=== PATIENT | male | born 1940 | race Caucasian/White ===

== ENCOUNTER 2019-04-09 06:29 | Observation (INO) | payer OTHER ==
[2019-04-09] VITALS (13 sets, daily range): BP systolic 98–161; BP diastolic 45–86
[~2019-04-09] VITALS: Ht 177.8 cm; Wt 105.1 kg
[2019-04-09 07:10] LABS: ABSOLUTE NEUTROPHILS 4.3 thou/uL (1.4-8.2); BASOPHILS 1.3 % (0.0-2.0); EOSINOPHILS 4.2 % (0.0-3.0); HEMATOCRIT 44.2 % (42.0-52.0); HEMOGLOBIN 14.9 gm/dL (14.0-18.0); LYMPHOCYTES 23.6 % (24.0-44.0); MCH 35.4 pg (26.0-34.0); MCHC 33.7 g/dL (28.0-37.0); MCV 105.1 fL (80.0-100.0); MONOCYTES 8.2 % (1.0-8.0); PLATELET COUNT 280 thou/uL (150-400); POLYS 62.7 % (36.0-66.0); RBC 4.21 mil/uL (4.50-6.00); RDW 15.1 % (10.5-14.5); WBC 6.8 thou/uL (4.0-11.0)
[2019-04-09 07:22] LABS: CALCIUM 9.8 mg/dL (8.5-10.1); CREATININE 2.8 mg/dL (0.7-1.3); POTASSIUM 4.3 mmol/L (3.5-5.1)
[2019-04-09] MEDS ORDERED: CARVEDILOL3.125 MG PO (07:23)
[2019-04-09] MEDS ORDERED: PACERONE 200 M200 M1 PO (07:23)
[2019-04-09] MEDS ORDERED: DIGOXIN250 MCG PO (07:24)
[2019-04-09] MEDS ORDERED: ASPIR 8181 MG PO (07:24)
[2019-04-09 07:25] LABS: PROTIME 9.4 Seconds (9.3-11.4)
[2019-04-09] MEDS ORDERED: ELIQUIS5 MG PO (07:25)
[2019-04-09] MEDS ORDERED: COZAAR 25 MG TA25 M1 PO (07:25)
[2019-04-09] MEDS ORDERED: NEURONTIN 300300 M1 PO (07:26)
[2019-04-09] MEDS ORDERED: GLUCOSAMINE-CH1 EA40 PO (07:27)
[2019-04-09 07:28] LABS: ALBUMIN 3.8 g/dL (3.4-5.0); TOTAL BILIRUBIN 0.6 mg/dL (<0.1-1.0); TOTAL PROTEIN 7.5 g/dL (6.4-8.2)
[2019-04-09] MEDS ORDERED: DEMADEX20 MG PO (07:28)
[2019-04-09] MEDS ORDERED: SIMVASTATIN40 MG PO (07:28)
[2019-04-09] MEDS ORDERED: OMEPRAZOLE40 MG PO (07:29)
[2019-04-09] MEDS ORDERED: FLOMAX0.4 MG PO (07:29)
[2019-04-09] MEDS ORDERED: EFFEXOR XR75 MG PO (07:29)
[2019-04-09] MEDS ORDERED: ZANTAC 150MG T150 MG PO (07:30)
[2019-04-09] MEDS ORDERED: CARAFATE 1 GM TA1 G1 PO (07:30)
[2019-04-09] MEDS ORDERED: MELATONIN5 M1 PO (07:31)
[2019-04-09] MEDS ORDERED: CALCIUM 600+D1 EACH PO (07:32)
[2019-04-09] MEDS ORDERED: XALATAN2.5 ML OPHTHALMIC (07:33)
[2019-04-09] MEDS ORDERED: VALTREX 500 MG500 M1 PO (07:33)
[2019-04-09] MEDS ORDERED: BRIMONIDINE 0.110 ML OPHTHALMIC (07:34)
--- NOTE | 2019-04-09 16:52 | NUR ---
PT CARE ASSUMED APPROX 1050. PT ADMITTED FROM EP LAB VIA PACU POST PPM PLACEMENT. PT ARRIVED TO UNIT WITH FRIEND. EDUCATED TO UNIT AND POC. PT ALERT AND ORIENTED X4. DENIES SOA. VSS. REPORTS 09/08 LEFT SUBCLAVIAN INCISION. TYLENOL ADEQUATELY MANAGING PAIN PER PT REPORTS. LEFT SUBCLAVIAN PPM INCISION C/D/I. IMMOBILIZER IN PLACE. PT NEEDS REMINDERS REGARDING BEDREST WITH BRP ORDER. UP WITH SBA TO BR. PT AND FRIEND DENY QUESTIONS OR CONCERNS REGARDING POC. NO DISTRESS NOTED.
--- NOTE | 2019-04-10 02:46 | NUR ---
PT RESTING QUIETLY IN BED, VSS, USING CALL LIGHT APPROPRIATLY FOR ASSISTANCE UP TO USE URINAL, PAIN MEDS GIVEN FOR C/O SCHWARTZ, INCISION REMAINS CDI, PT HOPING TO GO HOME IN AM, WILL CON'T TO MONITOR PER PPOC.
[2019-04-10 03:04] VITALS: BP 132/59
[2019-04-10 07:20] VITALS: BP 151/69
[2019-04-10 11:50] VITALS: BP 151/69
--- NOTE | 2019-04-10 12:20 | NUR ---
ASSUMMED PT CARE AT APPROXIMATELY 0700. PT A&O X4. FALL PRECAUTIONS IN PLACE. ASSESSMENT CHARTED. VITAL SIGNS STABLE. IV DC. TELE DC. DISCHARGING HOME C . PACEMAKER SITE CLEAN AND INTACT. PT AND SPOUSE RECEIVED DISCHARGE INSTRUCTIONS. PT AND SPOUSE STATED UNDERSTANDING AND DENIED HAVING FURTHER QUESTIONS. PT AND EATING LUNCH. PT WILL BE RECEIVING HOSPITAL TRANSPORT OFF UNIT AFTER EATING. PT AMBULATES STEADY/INDEPENDENT. PT'S DRIVING HOME. PT STATED HE DOES NOT HAVE CHEST PAIN. PT STATED HE DOES NOT HAVE SOB. PT STATED HE DOES NOT HAVE ACUTE PAIN. PT STATED NO FURTHER CONCERNS.
--- NOTE | 2019-04-17 11:40 | P ---
[facility] [place] [address] PROCEDURE REPORT Name: NIVIA MELLO Room #: 209-P [facility] M.R.#: [id number] Admission: 04/09/19 Attend Phys: Irvin Saravia MD Discharge: 04/10/19 Date of : 40 Report #: [id number] THIS REPORT FOR: //name// CC: Gregorio Saravia ICD IMPLANTATION PREOPERATIVE DIAGNOSIS: Nonischemic cardiomyopathy. POSTOPERATIVE DIAGNOSIS: Nonischemic cardiomyopathy. HISTORY: The patient is a 79-year-old with nonischemic cardiomyopathy as well as atrial fibrillation, atrial flutter who is here for ICD implantation for primary prevention of sudden cardiac . ANESTHESIA: The patient underwent MAC anesthesia with no anesthesia-related complications. DESCRIPTION OF PROCEDURE: The patient underwent informed consent. We discussed the details of the procedure including the risks, which include, but not limited to bleeding, infection, vascular damage, cardiac perforation and pneumothorax. He understood these risks and is willing to proceed. The patient was brought to the EP laboratory in a fasting, unsedated state, prepped and draped in a sterile fashion, underwent a venogram showing patency of the left axillary vein and received IV vancomycin for antibiotic prophylaxis. I injected lidocaine at the incision site. Incision was made. The pocket was created over the prepectoral fascia. Access was obtained twice to left axillary vein with sheaths positioned using the modified Seldinger technique. Next, under fluoroscopy, a lead was placed in the right ventricular apex and the lead was placed in the right atrial appendage both with adequate pacing and sensing thresholds. The leads were sutured to the prepectoral fascia and the device was connected. Tug test was performed and the device was found to be functioning normally. The pocket was irrigated with vancomycin and then the pocket was closed in 2 layers using 2-0 for the deep layer, 3-0 for the middle layer and surgical glue for the outer skin layer. The patient awoke neurologically and hemodynamically intact. No complications and no significant bleeding. The implanted device was a Medtronic model #XLGT7R4, serial #[id number]. Atrial lead was Medtronic model #5076, 52 cm, serial #[id number] and the RV lead was a Medtronic model #6935, 62 cm, serial #[id number]. Atrial lead demonstrated P-wave of 1.6 millivolts, pacing impedance of 708 ohms and a pacing threshold of 0.8 volts at 0.5 milliseconds. The RV lead demonstrated R waves of 8.7 millivolts, pacing impedance of 671 ohms and the pacing threshold of 1 volt at 0.5 milliseconds. The device was programmed to the AAIR/DDDR 60-130 mode. The VT zone was set at 180-220 beats per minute with 3 rounds of bursts followed by [facility] [address] [place] [address] PROCEDURE REPORT Name: NIVIA MELLO Room #: 209-P [facility] Baljit M.RKaren#: [id number] Admission: 04/09/19 Attend Phys: Irvin Saravia MD Discharge: 04/10/19 Date of : 40 Report #: [id number] 3 rounds of ramp, followed by max output shocks. The VF zone was set at greater than 220 beats per minute with ATP while charging followed by max output shocks. CONCLUSIONS: 1. Successful dual-chamber ICD implantation. 2. Satisfactory atrial and ventricular pacing and sensing thresholds. <ELECTRONICALLY SIGNED> By: Irvin Saravia MD 04/17/19 1140 [id number] [id number] Irvin Saravia MD /nt
== END 2019-04-10 13:10 | disposition home or self-care (01) ==
LOC: CATH 06:29 → 2N 06:41 → CATH 14:31 → ENTRNSPT 04-10 12:51 → EDTRNSPTSTS 04-10 13:05 → 2N 04-10 13:10
PROVIDERS: ADMIT Internal Medicine Cardiovascular Disease
DX: I42.8 Other cardiomyopathies (principal); I10 Essential (primary) hypertension; I48.91 Unspecified atrial fibrillation; E78.5 Hyperlipidemia, unspecified; I48.92 Unspecified atrial flutter; Z23 Encounter for immunization; Z88.0 Allergy status to penicillin; Z88.8 Allergy status to other drugs, medicaments and biological substances; Z79.01 Long term (current) use of anticoagulants; Z79.02 Long term (current) use of antithrombotics/antiplatelets; Z79.899 Other long term (current) drug therapy

== ENCOUNTER → 2020-07-08 | Outpatient (CLI) | payer OTHER ==
[~2020-07-08] MED LIST: ASPIR 8181 MG PO; BRIMONIDINE 0.110 ML OPHTHALMIC; CALCIUM 600+D1 EACH PO; CARAFATE 1 GM TA1 G1 PO; CARVEDILOL3.125 MG PO; COZAAR 25 MG TA25 M1 PO; DEMADEX20 MG PO; DIGOXIN250 MCG PO; EFFEXOR XR75 MG PO; ELIQUIS5 MG PO; FLOMAX0.4 MG PO; GLUCOSAMINE-CH1 EA40 PO; MELATONIN5 M1 PO; NEURONTIN 300300 M1 PO; OMEPRAZOLE40 MG PO; PACERONE 200 M200 M1 PO; SIMVASTATIN40 MG PO; VALTREX 500 MG500 M1 PO; XALATAN2.5 ML OPHTHALMIC; ZANTAC 150MG T150 MG PO
== END ==
LOC: SJCVC 13:48
PROVIDERS: ATTEND Internal Medicine Cardiovascular Disease
DX: R94.31 Abnormal electrocardiogram [ECG] [EKG] (principal); I45.10 Unspecified right bundle-branch block; I48.0 Paroxysmal atrial fibrillation; I42.8 Other cardiomyopathies; E78.5 Hyperlipidemia, unspecified; I12.9 Hypertensive chronic kidney disease with stage 1 through stage 4 chronic kidney disease, or unspecified chronic kidney disease; N18.9 Chronic kidney disease, unspecified; I25.10 Atherosclerotic heart disease of native coronary artery without angina pectoris; Z95.810 Presence of automatic (implantable) cardiac defibrillator; Z79.899 Other long term (current) drug therapy; Z87.891 Personal history of nicotine dependence